=== PATIENT | female | born 1995 | race Caucasian/White ===

== ENCOUNTER 2020-03-09 14:56 | Emergency (ER) | payer SELFPAY ==
[2020-03-09 15:02] VITALS: BP 122/81; PULSE 107; RESP 20; TEMP 36.9; O2SAT 98
--- NOTE | 2020-03-09 15:10 | ED.URI ---
HPI - URI/Sore Throat General Chief Complaint: Upper Respiratory Infection Stated Complaint: sore throat/fever 99.5 Time Seen by Provider: 03/09/20 15:10 Source: patient and RN notes reviewed History of Present Illness HPI Narrative: Patient is a 24-year-old female who presents the urgent care with complaints of sore throat and fever. Patient states her fever was 99.5 and she has not taken any medication [id number] for her symptoms. Patient states that started 2 days ago and she is also reported some fatigue/tiredness. Denies of any cough, nausea, vomiting, abdominal pain. Denies of any known exposure to strep or COVID. No other acute complaints. No acute distress noted. Patient aware of the plan of care. Some parts of this dictation were generated by voice recognition software and may contain typographical and/or grammatical inaccuracies. Related Data Allergies Allergy/AdvReac Type Severity Reaction Status Date / Time No Known Allergies Allergy Verified 03/09/20 15:20 Review of Systems Review of Systems: Narrative: CONSTITUTIONAL: Reports a low-grade fever EYES: Denies visual changes, redness, or discharge. ENT: Reports of sore throat CARDIOVASCULAR: Denies chest pain, palpitations, or edema. RESPIRATORY: Denies cough or dyspnea. GASTROINTESTINAL: Denies abdominal pain, nausea, vomiting, or diarrhea. GENITOURINARY: Denies dysuria or hematuria. SKIN: Denies rash or itching. MUSCULOSKELETAL: Denies back pain, joint pain, or myalgia. NEUROLOGIC: Denies headache, numbness, or weakness. All other systems reviewed are negative, except as documented in HPI. PMFSH Comments At the time of my signature, I reviewed and agree with the nursing past medical, surgical, social, and family history. There is no relevant family history pertinent to the patient complaint. Exam Narrative: Exam Narrative: GENERAL: This is a well-nourished, well-developed patient, in no apparent distress. HEAD: normocephalic, atraumatic. EYES: PERRL. Sclera clear/white. Vision is grossly intact. EARS: External ears normal, auditory canals clear and without drainage, TMs normal without perforation. Hearing grossly intact. NOSE: External nose normal with no obvious nasal discharge, nares without redness, no rhinorrhea. THROAT: Mucous membranes moist, moderate erythema noted to posterior oropharynx with moderate bilateral tonsillar erythema/edema with bilateral exudate. Airway not constricted. Patient swallowing without difficulty. NECK: Neck supple, non-tender without lymphadenopathy CARDIOVASCULAR: Regular rate and rhythm without murmurs, gallops, or rubs. RESPIRATORY: Clear to auscultation. Breath sounds equal bilaterally. No wheezes, rales, or rhonchi. SKIN: warm, intact with no suspicious lesions or rash, good texture and turgor. NEURO: awake, alert, and oriented to person, place and time. There were no obvious focal neurologic abnormalities. EXTREMITIES: No clubbing, cyanosis, or edema. Course Vital Signs Vital signs: Vital Signs Temperature 98.4 F 03/09/20 15:02 Pulse Rate 107 H 03/09/20 15:02 Respiratory Rate 03/09/20 15:02 Blood Pressure 122/81 03/09/20 15:02 Pulse Oximetry 98 03/09/20 15:02 Temperature 98.4 F 03/09/20 15:02 Pulse Rate 107 H 03/09/20 15:02 Respiratory Rate 03/09/20 15:02 Blood Pressure 122/81 03/09/20 15:02 Pulse Oximetry 98 03/09/20 15:02 Reviewed MDM - URI/Sore Throat MDM Narrative Medical decision making narrative: Reviewed lab results with the patient. She is aware that strep swab positive. Advised the patient to complete oral antibiotic regimen as prescribed. Make sure to eat and drink with the medication. Complete steroid regimen for inflammation/tonsillar swelling as directed. Use Claritin daily. Do not sleep with a fan or the windows open. Use a humidifier at night. Use Tylenol/ibuprofen as needed. If you develop any increase in tonsillar swelling associated with diffi
== END 2020-03-09 15:25 | disposition home or self-care (01) ==
PROVIDERS: Emergency Provider Nurse Practitioner Family
DX: J02.0 Streptococcal pharyngitis (principal)
CPT/HCPCS: 87880; 99213; G0463